=== PATIENT | male | born 1930 | race Caucasian/White ===

== ENCOUNTER 2017-07-07 13:34 | Inpatient (IN) | payer MEDICARE, OTHER ==
[~2017-07-07] VITALS: Ht 182.9 cm; Wt 75.7 kg
[~2017-07-07 13:34] MED LIST: CARISOPRODOL; GABAPENTIN; HTN MED; IBUPROFEN 800800 M1; MOBIC15 MG PO; VICODIN ES TAB1 EACH; ZOFRAN ODT4 MG PO
[2017-07-07 13:48] VITALS: BP 137/76
[2017-07-07] MEDS ORDERED: EXELON1 EAC2 INTRADERM (14:01)
[2017-07-07] MEDS ORDERED: NAMENDA 10 MG T10 MG PO (14:01)
[2017-07-07] MEDS ORDERED: FLOMAX0.4 MG PO (14:02)
[2017-07-07] MEDS ORDERED: STIOLTO RESPIMAT4 GM INH (14:02)
[2017-07-07] MEDS ORDERED: PROTONIX40 M1 PO (14:03)
[2017-07-07] MEDS ORDERED: CETIRIZINE HCL5 MG PO (14:03)
[2017-07-07] MEDS ORDERED: PROSCAR 5MG TABL5 MG PO (14:04)
[2017-07-07] MEDS ORDERED: ASPIR 8181 MG PO (14:04)
[2017-07-07] MEDS ORDERED: NORVASC5 MG PO (14:05)
[2017-07-07] MEDS ORDERED: DUONEB 2.5-0.5 M3 ML INH (14:06)
[2017-07-07 14:26] LABS: HEMATOCRIT 41.2 % (42.0-52.0); HEMOGLOBIN 13.8 gm/dL (14.0-18.0); MCHC 33.4 g/dL (28.0-37.0); MCV 92.9 fL (80.0-100.0); MPV 9.4 fl. (7.2-11.1); NUCLEATED RBCS 0 /100WBC; PLATELET COUNT* 188 thou/uL (150-400); RBC 4.44 mil/uL (4.50-6.00); RDW-CV 15.2 % (10.5-14.5); WBC 21.3 thou/uL (4.0-11.0)
[2017-07-07 14:43] LABS: ANION GAP 7 mmol/L (7-16); BUN 38 mg/dL (7-18); CALCIUM 9.4 mg/dL (8.5-10.1); CHLORIDE 106 mmol/L (98-107); CO2 27 mmol/L (21-32); CREATININE 2.2 mg/dL (0.6-1.3); GLUCOSE 144 mg/dL (70-99); POTASSIUM 3.9 mmol/L (3.5-5.1); SODIUM 140 mmol/L (136-145)
[2017-07-07 14:50] LABS: ALBUMIN 3.3 g/dL (3.4-5.0); ALKALINE PHOSPHATASE 184 U/L (46-116); SGOT 174 U/L (15-37); SGPT 96 U/L (30-65); TOTAL BILIRUBIN 1.7 mg/dL (<0.1-1.0); TOTAL PROTEIN 8.2 g/dL (6.4-8.2); TROPONIN-I LEVEL <0.06 ng/mL (<0.06)
[2017-07-07 14:57] LABS: ABSOLUTE BASOPHILS 0.4 thou/uL (0.0-0.2); ABSOLUTE EOSINOPHILS 0.2 thou/uL (0.0-0.7); ABSOLUTE LYMPHOCYTES 0.6 thou/uL (0.8-5.3); ABSOLUTE MONOCYTES 0.4 thou/uL (0.0-1.2); ABSOLUTE NEUTROPHILS 19.6 thou/uL (1.6-8.1); PLATELET ESTIMATE ADEQUATE
--- NOTE | 2017-07-07 17:03 | EKG ---
[place] [address] ELECTROCARDIOGRAM REPORT Name: ADAN WOOD Room: [place] [address] ADM IN R.#: [id number] Admission: 07/07/17 Attend Phys: Kvng Lugo MD Discharge: Date of : 32 Report #: [id number] THIS REPORT FOR: //name// [facility] ED Test Date: 2017-07-07 Test Time: 15:15:01 Pat Name: ADAN WOOD Department: Room: Gender: Car Pilot: : 1930 Requested By: Roselia Lorenzo Order Number: [id number] MD: Christo Browne Measurements Intervals [place] Rate: 87 P: 35 DC: 150 QRS: -58 QRSD: 137 T: 74 QT: 372 QTc: 448 Interpretive Statements Sinus rhythm Left bundle branch block Compared to ECG 05/14/2005 16:03:00 Left bundle-branch block now present Sinus bradycardia no longer present Electronically Signed On 07-07-2017 17:03:20 CDT by Christo Browne [email or web address] <ELECTRONICALLY SIGNED> By: Christo Browne MD, [facility] 07/07/17 1703 1515 1515 Christo Browne MD, [facility] /EPI
[2017-07-07 18:59] VITALS: BP 115/64
[2017-07-07 20:00] VITALS: BP 110/51
[2017-07-07 23:33] VITALS: BP 118/64
[2017-07-08 02:09] LABS: URINE POTASSIUM-RANDOM 56.5 mmol/L
[2017-07-08 03:29] VITALS: BP 124/70
[2017-07-08 04:22] LABS: HEMATOCRIT 33.4 % (42.0-52.0); MCH 30.7 pg (26.0-34.0); MCHC 33.1 g/dL (28.0-37.0); MCV 92.9 fL (80.0-100.0); MPV 9.6 fl. (7.2-11.1); RBC 3.6 mil/uL (4.50-6.00); RDW-CV 15.1 % (10.5-14.5); WBC 16.7 thou/uL (4.0-11.0)
[2017-07-08 04:27] LABS: CREATININE 1.8 mg/dL (0.6-1.3)
[2017-07-08 08:00] VITALS: BP 131/58
[2017-07-08 12:17] VITALS: BP 120/63
[2017-07-08 13:09] LABS: URINE BLOOD 3+ (Negative); URINE CLARITY CLEAR; URINE COLOR DARK YELLOW; URINE GLUCOSE-RANDOM TRACE (Negative); URINE KETONES NEGATIVE (Negative); URINE LEUKOCYTES-REFLEX TRACE (Negative); URINE PROTEIN 1+ (Negative); URINE SPECIFIC GRAVITY >= 1.030 (1.005-1.030)
[2017-07-08 13:16] LABS: ICTOTEST (BILI CONFIRMATORY) Negative (Negative); URINE BILIRUBIN 2+ (Negative); URINE NITRITE-REFLEX POSITIVE (Negative)
[2017-07-08 13:17] LABS: SQUAMOUS 0-3 Few /LPF (0-3)
[2017-07-08 13:18] LABS: COARSE GRANULAR CASTS 0-3 Few /LPF (None Seen); CRYSTALS None Seen /LPF (None Seen); HYALINE CASTS 0-3 Few /LPF (None Seen); MUCUS 4-6 Moderate strn/LPF (None Seen); URINE RBC 3-10 Few /HPF (0-2); URINE WBC-REFLEX 6-15 Few /HPF (0-5)
--- NOTE | 2017-07-08 15:12 | NUR ---
CM SPOKE TO THE PATIENT AND HIS DTR TO DISCUSS DISCHARGE PLANNING AND TO INFORM OF THE ROLE OF CM. PATIENT RESTING IN BED WITH HIS EYES CLOSED DURING THE ASSESSMENT. PATIENTS DTR CELINE AT THE BEDSIDE AND ANSWERING QUESTIONS FOR THE PATIENT. PATIENT HAS BEEN LIVING WITH HIS DTR UP UNIT 1 WEEK AGO. PATIENT HAD MOVED FROM THE DTR'S HOME INTO THE [facility] IN [place] ON THE [address]ARE UNIT. PATIENT USES A CANE FOR MOBILITY. ELAINE HAS NO HX OF OR SNF. PATIENTS DTR INFORMS THAT SHE IS INTERESTED IN HOSPICE AT HOME WITH CAREGIVERS. CM WILL REMAIN AVAILABLE TO ASSIST AND FOLLOW NEEDED.
[2017-07-08 15:59] VITALS: BP 114/65
--- NOTE | 2017-07-08 16:31 | NUR ---
URIAH called [facility] and spoke with Abi [phone] to provide referral for hospice eval, she said she would have a nurse meet with pt and pt family. URIAH called and spoke with Mandi at [facility] [phone] who also will be able to visit with pt and pt family for hospice information and eval. SW to continue to follow.
--- NOTE | 2017-07-08 19:24 | NUR ---
PATIENT RESTING IN BED. FAMILY AT BEDSIDE. PATIENT HAD COMPLAINTS OF LEFT RIB PASIN THIS AM. PATIENT DENIES ANY PAIN AT THIS TIME. PATIENT IS ASPIRATING LIQUIDS. PATIENT AND FAMILY REFUSE THICKENED LIQUIDS. PATIENT AND FAMILY VISITED BY HOSPICE THIS EVENING. PATIENT HAS LEE DRAINING MILLER URINE, UA SENT THIS AM. PATIENT DENIES ANY NEEDS AT THIS TIME. CALL LIGHT WITHIN REACH. WILL CONTINUE TO MONITOR.
[2017-07-08 23:22] VITALS: BP 125/60
[2017-07-09 04:48] VITALS: BP 131/71
--- NOTE | 2017-07-09 06:29 | NUR ---
PATIENT SLEPT MOST OF THE NIGHT. IV FLUIDS CONTINUE TO INFUSE. LEE REMAINS TO DEPENDENT DRAIN. PATIENT REMAINS ON OXYGEN AT 2L PER NASAL CANNULA. WILL CONTINUE TO MONITOR,
[2017-07-09 07:30] VITALS: BP 139/72
[2017-07-09 11:23] VITALS: BP 140/72
[2017-07-09 15:40] VITALS: BP 118/61
--- NOTE | 2017-07-09 17:29 | NUR ---
PATIENT RESTING IN BED. PATIENT HAS HAD COMPLAINTS OF LEFT RIB PAIN, LIDOCAINE PATCHA ND TYLENOL GIVEN. PATIENT HAS GOOD APPETITE, GOOD FLUID INTAKE. PATIENT HAS HAD TIMES OF ASPIRATION, PATIENT AND FAMILY REFUSE PRECAUTIONS AND THICKENED LIQUIDS. PATIENT HAD LEE CATHETER REMOVED. PATIENT DENIES ANY NEEDS AT THIS TIME. CALL LIGHT WITHIN REACH. WILL CONTINUE TO MONITOR.
[2017-07-10] VITALS: BP 124/71
[2017-07-10 04:05] VITALS: BP 122/87
[2017-07-10 04:38] LABS: HEMATOCRIT 30.6 % (42.0-52.0); HEMOGLOBIN 10.4 gm/dL (14.0-18.0); MCH 31.2 pg (26.0-34.0); MCHC 33.9 g/dL (28.0-37.0); MCV 91.8 fL (80.0-100.0); MPV 9.6 fl. (7.2-11.1); RBC 3.34 mil/uL (4.50-6.00); RDW-CV 15.2 % (10.5-14.5); WBC 9.9 thou/uL (4.0-11.0)
[2017-07-10 04:44] LABS: CALCIUM 7.9 mg/dL (8.5-10.1); CREATININE 1.6 mg/dL (0.6-1.3); MAGNESIUM 1.9 mg/dL (1.8-2.4)
--- NOTE | 2017-07-10 05:55 | NUR ---
PATIENT SLEPT MOST OF THE NIGHT. PATIENT WAS GIVEN TYLENOL ONCE FOR PAIN. IV REMAINS SALINE LOCKED. PATIENT REMAINS ON OXYGEN AT 3L PER NASAL CANNULA. PATIENT HAS BEEN INCONTINENT OF URINE A FEW TIMES SINCE CATHETER WAS REMOVED. WILL CONTINUE TO MONITOR.
[2017-07-10 07:30] VITALS: BP 125/75
[2017-07-10] MEDS ORDERED: AZITHROMYCIN 2250 MG PO (09:54)
[2017-07-10] MEDS ORDERED: VENTOLIN HFA 1818 GM INH (09:54)
[2017-07-10] MEDS ORDERED: CEFUROXIME500 MG PO (09:54)
[2017-07-10] MEDS ORDERED: PREDNISONE 10 M10 MG PO (09:54)
[2017-07-10 10:35] VITALS: BP 125/75
[2017-07-10 15:14] VITALS: BP 125/75
--- NOTE | 2017-07-10 15:38 | NUR ---
PATIENT SITTING UP IN CHAIR ALL SHIFT. 02 SAT 92-93% RA. WOUND CARE PHOTOS TAKEN PER PROTOCOL. IV DC'D AFTER IV ABX. REPORT CALLED TO [facility], SPOKE WITH ABHISHEK. SON VERBALIZES UNDERSTANDING OF PAPERWORK AND SCRIPTS. PATIENT TAKEN OUT VIA HOME WHEELCHAIR WITH STAFF.
--- NOTE | 2017-07-10 15:49 | NUR ---
URIAH followed up with hospice referrals...Brenda from [facility] followed up with pt and pt son and determined that there was not an admitting diagnosis for hospice care. Anabel with [facility] followed up with URIAH and apologized for no visit on Monday and will follow up with pt through pt current HH services through [facility]. URIAH discussed plan with pt son who confirmed with family pt/family preference for back home to [facility] with HH and possible hospice services soon. URIAH called [facility] and provided dc orders by fax attn Marlin. URIAH faxed final resumption orders and med list to [facility]. Pt son provided pt ride home.
== END 2017-07-10 15:43 | disposition home health service (06) | DRG 871 ==
LOC: M.ERS 13:34 → M.3W 15:40 → M.TBA-ER 15:40 → M.3W 19:14
PROVIDERS: Physician Assistant; ADMIT Internal Medicine
DX: A41.9 Sepsis, unspecified organism (principal); J69.0 Pneumonitis due to inhalation of food and vomit; N17.0 Acute kidney failure with tubular necrosis; E44.1 Mild protein-calorie malnutrition; N39.0 Urinary tract infection, site not specified; Z51.5 Encounter for palliative care; Z66 Do not resuscitate; M13.842 Other specified arthritis, left hand; S40.011A Contusion of right shoulder, initial encounter; S51.811A Laceration without foreign body of right forearm, initial encounter; S20.212A Contusion of left front wall of thorax, initial encounter; N18.2 Chronic kidney disease, stage 2 (mild); J44.9 Chronic obstructive pulmonary disease, unspecified; I12.9 Hypertensive chronic kidney disease with stage 1 through stage 4 chronic kidney disease, or unspecified chronic kidney disease; M13.841 Other specified arthritis, right hand; F03.90 Unspecified dementia, unspecified severity, without behavioral disturbance, psychotic disturbance, mood disturbance, and anxiety; W18.39XA Other fall on same level, initial encounter; Z91.11 Patient's noncompliance with dietary regimen; Z68.22 Body mass index [BMI] 22.0-22.9, adult; Z90.49 Acquired absence of other specified parts of digestive tract; Z79.82 Long term (current) use of aspirin; Z79.899 Other long term (current) drug therapy; Y93.89 Activity, other specified; Y92.89 Other specified places as the place of occurrence of the external cause; Y99.8 Other external cause status

== ENCOUNTER 2017-07-11 12:20 | Inpatient (IN) | payer MEDICARE, OTHER ==
[~2017-07-11] VITALS: Ht 177.8 cm; Wt 83.0 kg
[~2017-07-11 12:20] MED LIST changes: +ASPIR 8181 MG PO; +AZITHROMYCIN 2250 MG PO; +CEFUROXIME500 MG PO; +CETIRIZINE HCL5 MG PO; +DUONEB 2.5-0.5 M3 ML INH; +EXELON1 EAC2 INTRADERM; +FLOMAX0.4 MG PO; +NAMENDA 10 MG T10 MG PO; +NORVASC5 MG PO; +PREDNISONE 10 M10 MG PO; +PROSCAR 5MG TABL5 MG PO; +PROTONIX40 M1 PO; +STIOLTO RESPIMAT4 GM INH; +VENTOLIN HFA 1818 GM INH
[2017-07-11 12:27] VITALS: BP 120/90
[2017-07-11 12:44] LABS: HEMATOCRIT 36.3 % (42.0-52.0); HEMOGLOBIN 12.2 gm/dL (14.0-18.0); MCH 30.7 pg (26.0-34.0); MCHC 33.5 g/dL (28.0-37.0); MCV 91.7 fL (80.0-100.0); MPV 9.5 fl. (7.2-11.1); NUCLEATED RBCS 0 /100WBC; RBC 3.96 mil/uL (4.50-6.00); RDW-CV 15.4 % (10.5-14.5); WBC 16.1 thou/uL (4.0-11.0)
[2017-07-11 12:45] LABS: PLATELET COUNT* 282 thou/uL (150-400)
[2017-07-11 13:06] LABS: ABSOLUTE LYMPHOCYTES 0.6 thou/uL (0.8-5.3); ABSOLUTE MONOCYTES 0.6 thou/uL (0.0-1.2); ABSOLUTE NEUTROPHILS 14.8 thou/uL (1.6-8.1); METAMYELOCYTES 1 %; PLATELET ESTIMATE ADEQUATE
[2017-07-11 13:18] LABS: BE 1.5 mmol/L (-2 to +3); HCO3 23.7 mmol/L (22.0-26.0); PCO2 30.2 mmHg (35.0-45.0); PO2 63.5 mmHg (75.0-100.0); pH 7.512 (7.340-7.450)
--- NOTE | 2017-07-11 13:27 | NUR ---
LUNCH TRAY ORDERED FOR PT.
[2017-07-11 13:30] LABS: ALBUMIN 2.2 g/dL (3.4-5.0); ALKALINE PHOSPHATASE 281 U/L (46-116); ANION GAP 7 mmol/L (7-16); BUN 33 mg/dL (7-18); CALCIUM 8.6 mg/dL (8.5-10.1); CHLORIDE 107 mmol/L (98-107); CO2 26 mmol/L (21-32); CREATININE 1.2 mg/dL (0.6-1.3); GLUCOSE 126 mg/dL (70-99); POTASSIUM 4.3 mmol/L (3.5-5.1); SGOT 177 U/L (15-37); SGPT 147 U/L (30-65); SODIUM 140 mmol/L (136-145); TOTAL BILIRUBIN 0.9 mg/dL (<0.1-1.0); TOTAL PROTEIN 6.6 g/dL (6.4-8.2); TROPONIN-I LEVEL <0.06 ng/mL (<0.06)
--- NOTE | 2017-07-11 13:38 | NUR ---
PT GIVEN LUNCH TRAY.
[2017-07-11 13:49] LABS: URINE BILIRUBIN NEGATIVE (Negative); URINE BLOOD TRACE (Negative); URINE CLARITY CLEAR; URINE COLOR YELLOW; URINE GLUCOSE-RANDOM NEGATIVE (Negative); URINE KETONES NEGATIVE (Negative); URINE LEUKOCYTES-REFLEX NEGATIVE (Negative); URINE NITRITE-REFLEX NEGATIVE (Negative); URINE PROTEIN NEGATIVE (Negative); URINE UROBILINOGEN 0.2 E.U./dl (0.2-1.0)
[2017-07-11 14:06] LABS: CK-MB MASS 1.9 ng/mL (<0.5-3.6); NT-PRO BRAIN NAT PEPTIDE 1395 pg/mL (<300)
--- NOTE | 2017-07-11 15:30 | NUR ---
PER FAMILY REQUEST, HOSPICE NURSE HERE TO EVALUATE TO SEE IF IT IS APPROPRIATE FOR PT TO BE ON HOSPICE AFTER DISCHARGED FROM HOSPITAL.
[2017-07-11 15:32] VITALS: BP 139/75
[2017-07-11 17:15] LABS: APTT 28.4 Seconds (25.0-31.3); INR 1.1; PROTIME 10.3 Seconds (9.20-11.50)
--- NOTE | 2017-07-11 17:19 | EKG ---
[place] [address] ELECTROCARDIOGRAM REPORT Name: ADAN WOOD Room: [address] IN .R.#: [id number] Admission: 07/11/17 Attend Phys: Sameer Perea Discharge: Date of : 32 Report #: [id number] THIS REPORT FOR: //name// [facility] ED Test Date: 2017-07-11 Test Time: 12:50:03 Pat Name: ADAN WOOD Department: Room: Gender: Validation Leader: Arun PADILLA : 1930 Requested By: Roselia Reveles Order Number: [id number] MD: Christo Browne Measurements Intervals [place] Rate: 73 P: 28 [place]: 143 QRS: -51 QRSD: 134 T: 79 QT: 421 QTc: 464 Interpretive Statements Sinus rhythm Ventricular premature complex Left bundle branch block Compared to ECG 07/07/2017 15:15:01 Ventricular premature complex(es) now present Electronically Signed On 07-11-2017 17:19:29 CDT by Christo Browne [email or web address] <ELECTRONICALLY SIGNED> By: Christo Browne MD, [facility] 07/11/17 1719 1250 1250 Christo Browne MD, [facility] /EPI
--- NOTE | 2017-07-11 18:21 | NUR ---
PT SDMITTED AROUND 1600 PT IS ALERT AND ORIENTED X 2-3 PT DENIES PAIN OR SOA ON 2L/NC PT IS CONFUSED PT IS A FALL RISK BED ALARM IS ON, PT IS A Q 2 TURN, ON ADMISSION TO UNIT PT WEIGHT WAS 192 PT FAMILY STATES THAT IS NOT CORRECT PT WAS WEIGHED IN ER AT 186 FAMILY STATES PT WEIGHT AT HOME IS 167 PT WAS WEIGHED ON UNIT IN BED PT HAS FLUID PT IS SCHEDULED FOR THORACENTESIS TOMORROW ULTRASOUND CALLED NEED ORDERS FOR COAGULATION PANEL DONE FOR PROCEDURE AND TO HOLD BLOOD THINNERS NOTIFIED PHYSICIAN OBTAINED ORDERS TO HOLD XERELTO AND LABS, PT HAS FLUIDS RUNNING, PT IS SR ON THE MONITOR, CALLED [facility] MEQUON TO CLARIFY MEDICATIONS AND WHEN LAST GIVEN, PT FAMILY TALKED WITH HOSPICE WHO WILL FOLLOW PT DAILY AND PT WILL BE ADMITTED TO HOSPICE ON DISCHARGE, WILL CONTINUE TO MONITOR
[2017-07-11 20:00] VITALS: BP 137/79
[2017-07-12] VITALS: BP 143/71
[2017-07-12 04:00] VITALS: BP 146/67
[2017-07-12 07:50] VITALS: BP 162/81
--- NOTE | 2017-07-12 07:50 | NUR ---
RECIEVED REPORT FROM MAVIS AND ASSUMED CARE OF PT @ 3498.PT IS A/O X4 WITH CONFUSION AND FORGETFULNESS.VSS,TRACING SR ON MONITOR.LUNG SOUNDS ARE CLEAR.IV LEFT FOREARM PATENT WITH NS RUNNING @ 125ML/HR.PT CALM AND COOPERATIVE WITH NO C/O PAIN AT TIME OF ASSESSMENT.PT HAS BEEN ON BEDREST.GOAL FOR THE DAY IS TO GET UP TO THE CHAIR THIS AFTERNOON.PT LEFT RESTING IN BED WITH CALL LIGHT AND FALL PRECAUTIONS IN PLACE.WILL CONTINUE TO MONITOR. PT WENT DOWN FOR THORANCENTISIS WITH NO COMPLICATIONS.
--- NOTE | 2017-07-12 11:41 | NUR ---
CM spoke with Pt's dtr in room at bedside. Pt has dementia. Pt had been living with his daughter, in her home, up until a week or so ago, when Pt moved to [facility] memory care unit. While in dtr's home, Pt was independent with IADLs, used a cane for mobility, and was fairly healthy. Dtr states that since moving to [facility], Pt has declined, likely needs to use a walker now and has been sick the entire time that he has been there. Pt was recently dc from this hospital a few days ago back to [facility] with [facility]. Family is discussing Pt moving back home with dtr, family is not totally happy with the care that Pt has been receiving at [facility]. Family met with Brenda from [facility], plan is for Pt to [facility]. Dtr has a vacation planned for the first 2 weeks of July, so unsure if Pt will return to [facility] with hospice or home with his dtr, with paid caregivers in the home, while they are away on vacation. Pt does not wear home o2. Also has a walker that he can use. Dtr unsure of Pt's mobility status now, since he has been sick. Therapy orders to be placed. Dtr met with Garrison Ferraro at [facility] regarding private duty. Following for disposition.
[2017-07-12 11:45] LABS: BF RBC 9169 /mm3; TOTAL CELL COUNT >66000 /mm3
[2017-07-12 11:47] LABS: CLARITY HAZY; COLOR AMBER; TOTAL VOLUME 15 ml
[2017-07-12 11:48] LABS: BF LYMPHOCYTES 1 %; BF POLYS 99 %
[2017-07-12 11:53] LABS: SOURCE THORACENTESIS
[2017-07-12 12:30] VITALS: BP 168/84
[2017-07-12 15:20] LABS: SOURCE THORACENTESIS
[2017-07-12 15:21] LABS: SOURCE THORACENTESIS
[2017-07-12 16:22] VITALS: BP 137/69
--- NOTE | 2017-07-12 17:29 | NUR ---
VSS.CARDIAC MONITORING IN PLACE WITH NO CHANGES THIS SHIFT.PT REMAINS ON 2L O2 NC.PT PROGRESSING TOWARDS GOALS.PT HAS DENIED PAIN THIS SHIFT.IVF INFUSING PER ORDERS.PT STARTED XERLTO TODAY.PT INFORMED OF PLAN OF CARE AND COMMUNICATES UNDERSTANDING.FAMILY AT BEDSIDE ALL OF SHIFT.PT/OT SAID WOULD SEE PT TOMORROW TO ALLOW TIME FOR BLOOD THINNER TO WORK ON PE.HOURLY ROUNDING COMPLETED FOR PT SAFETY.CALL LIGHT AND FALL PRECAUTIONS IN PLACE.WILL CONTINUE TO MONITOR FOR DURATION OF SHIFT.PLAN FOR D/C ON MONDAY WITH HOSPICE.
[2017-07-12 20:00] VITALS: BP 140/74
[2017-07-13] VITALS: BP 139/89
[2017-07-13 04:39] VITALS: BP 145/79
--- NOTE | 2017-07-13 05:57 | NUR ---
PT CALM COOPERITVE, FORGETFULL AT TIMES. Q2 TURNS. 2L O2. PT ON BEDREST. SR BBB PVC ON THE MONITOR. SEE MAR. SEE CHARTING. VITALS WNL. FALL PRECAUTIONS IN PLACE. HOURLY ROUNDING FOR SAFETY.
[2017-07-13 07:30] VITALS: BP 162/110
--- NOTE | 2017-07-13 10:42 | NUR ---
ORDER RECEIVED FOR "OT EVALUATION AND TREATMENT". SPOKE WITH SON OUTSIDE OF THE ROOM. SON STATES THAT PATIENT HAS BEEN ON A "SHARP DECLINE" FOR THE PAST SIX MONTH'S. PLAN IS FOR PATIENT TO GO HOSPICE. SON STATES THAT HIS FATHER REALLY "JUST WANTS TO GO". SON DENYING NEED FOR THERAPY. WILL D/C FROM [facility]. ADVISED SON THAT OCCUPATIONAL THERAPY AVAILABLE SHOULD NEED ARISE.
[2017-07-13 11:53] VITALS: BP 158/90
--- NOTE | 2017-07-13 14:10 | NUR ---
RECEIVED PT CARE 0700. PATIENT IS ALERT AND ORIENTED X2-3. CONFUSED AND FORGETFUL. VSS. COOK ROOM SUPERVISOR TRACING SR WITH BBB. O2 SAT 94% ON 2L ON INITIAL ASSESSMENT. PATIENT HAD A COUGHING EPISODE AND WAS INCREASED TO 3L NC FOR A 90-91% O2 SAT. NOTIFIED DR HORTON. NEW ORDERS RECEIVED. PATIENT TRANSFERS WITH ASSIST X1 TO BEDSIDE COMMODE. BOWEL MOVEMENT NOTED THIS AM. PATIENT INCONTINENT OF URINE AT TIMES. AM ASSESSMENT CHARTED. MEDS PER APR. BED ALARM ON. PATIENTS SON AT BEDSIDE MOST OF THE AM. CALL LIGHT WITHIN REACH. WILL CONTINUE TO MONITOR.
[2017-07-13 16:00] VITALS: BP 138/77
[2017-07-13 16:10] LABS: BODY FLUID PH 7.2 (Not Estab.)
[2017-07-13 19:50] VITALS: BP 119/68
[2017-07-14 00:32] VITALS: BP 122/83
[2017-07-14 04:08] VITALS: BP 156/73
[2017-07-14 07:40] VITALS: BP 151/70
--- NOTE | 2017-07-14 09:51 | NUR ---
RECIEVED REPORT FROM WILL AND ASSUMED CARE OF PT @ 1473.PT IS A/O X4 BUT CONFUSED AT TIMES AND FORGETFUL.VSS,TRACING SR ON MONITOR.LUNG SOUNDS ARE CLEAR DIMINSHED.LAST BM WAS YESTERDAY.IV LEFT FOREARM PATENT AND SALINE LOCKED.PT IS CALM AND COOPERATIVE WITH NO C/O PAIN AT TIME OF ASSESSMENT.PT IS UP WITH ONE ASSIST TO BSC AND CHAIR.PT LEFT RESTING IN BED WITH CALL LIGHT AND FALL PRECAUTIONS IN PLACE.WILL CONTINUE TO MONITOR.PLANNED DISCHARGE TODAY-HOME WITH HOSPICE.
[2017-07-14] MEDS ORDERED: XARELTO15 MG PO (11:43)
[2017-07-14] MEDS ORDERED: ROXICODONE5 MG PO (11:52)
[2017-07-14] MEDS ORDERED: LEVAQUIN 500 M500 M2 PO (11:53)
[2017-07-14] MEDS ORDERED: PREDNISONE 10 M10 MG PO (11:58)
[2017-07-14 11:59] VITALS: BP 151/70
--- NOTE | 2017-07-14 12:29 | NUR ---
PT OK FOR DISCHARGE TO GO HOME WITH FAMILY AND HOSPICE.IV REMOVED.HEART MONITOR REMOVED AND RETURNED TO NURSING STATION.DISCHARGE PAPERWORK COMPLETE AND GONE OVER WITH SON.SCRIPTS GIVEN TO SON TO GIVE TO HOSPICE NURSE.ALL PERSONAL BELONGINGS PACKED AND TAKEN WITH PT.PT WHEELED DOWN BY HOSPITAL STAFF TO PERSONAL VEHICLE.
--- NOTE | 2017-07-14 12:42 | NUR ---
CM SPOKE TO THE PATIENT'S DTR TO DISCUSS DISCHARGE PLANNING NEEDS AND ANY QUESTIONS OR CONCERNS THAT SHE MAY HAVE. PATIENT'S DTR HAS NO QUESTIONS OR CONCERNS AT THIS TIME AND INFORMS THAT THE PATIENT WILL RETURN HOME WITH HER, [facility], AND CARE GIVERS. CM SPOKE TO JUDY WITH [facility] TO INFORM OF THE PATIENTS D/C AND FAXED THE PATIENTS D/C ORDERS AND PRESCRIPTIONS. CM WILL REMAIN AVAILABLE TO ASSIST AND FOLLOW NEEDED.
[2017-07-15 15:06] LABS: BODY FLUID PROTEIN 3.2 g/dL (())
[2017-07-15 16:07] LABS: BODY FLUID LDH 11819 IU/L (())
[2017-07-18 08:06] LABS: BODY FLUID AMYLASE 4 U/L (())
== END 2017-07-14 13:45 | disposition hospice, home (50) | DRG 177 ==
LOC: M.ERS 12:20 → M.2W 13:47 → M.TBA-ER 13:47 → M.2W 15:41
PROVIDERS: Personal Emergency Response Attendant; ADMIT Internal Medicine
PROC: 0W9B3ZZ Drainage of Left Pleural Cavity, Percutaneous Approach (ICD-10-PCS; principal; 2017-07-12)
DX: J69.0 Pneumonitis due to inhalation of food and vomit (principal); I26.99 Other pulmonary embolism without acute cor pulmonale; J96.21 Acute and chronic respiratory failure with hypoxia; J90 Pleural effusion, not elsewhere classified; M19.90 Unspecified osteoarthritis, unspecified site; F03.90 Unspecified dementia, unspecified severity, without behavioral disturbance, psychotic disturbance, mood disturbance, and anxiety; N18.2 Chronic kidney disease, stage 2 (mild); I12.9 Hypertensive chronic kidney disease with stage 1 through stage 4 chronic kidney disease, or unspecified chronic kidney disease; Z79.82 Long term (current) use of aspirin; Z79.899 Other long term (current) drug therapy